=== PATIENT | female | born 1965 | race Caucasian/White ===

== ENCOUNTER 2017-06-22 18:42 | Emergency (ER) | payer MEDICAID ==
[~2017-06-22] VITALS: Ht 162.6 cm; Wt 66.0 kg
[~2017-06-22 18:42] MED LIST: CYCL-319 PO; IBUP-1542 PO
[2017-06-22 18:43] VITALS: Ht 162.6 cm; Wt 66.0 kg
--- NOTE | 2017-06-22 19:20 | ERD ---
ER Documentation Chief Complaint Chief Complaint left hand swelling, pain x 3 days, denies injury HPI This 51-year-old female presents to emergency department for acute onset of left hand pain, w/o injury denies history of arthritis ROS All systems reviewed and are negative except as per history of present illness. Medications Home Meds Active Scripts Famotidine* (Pepcid*) 20 Mg Tablet, 20 MG PO BID for 10 Days, TAB Prov:HOLLY,RICHARD 06/22/17 Naproxen* (Naprosyn*) 500 Mg Tablet, 500 MG PO BID Y for PAIN AND/OR INFLAMMATION, #20 TAB Prov:HOLLY,RICHARD 06/22/17 Ibuprofen* (Motrin*) 600 Mg Tab, 600 MG PO Q6H Y for PAIN AND OR ELEVATED TEMP, #30 TAB Prov:NIR DUKE NP 11/06/15 Cyclobenzaprine Hcl* (Cyclobenzaprine Hcl*) 10 Mg Tablet, 5 MG PO TID, #15 TAB Prov:NIR DUKE SODA JERKER 11/06/15 Allergies Allergies: Coded Allergies: No Known Allergy (Unverified , 11/06/15) PMhx/Soc History of Surgery: No Hx Neurological Disorder: No Hx Respiratory Disorders: Yes (ASTHMA) Hx Cardiac Disorders: No Hx Alcohol Use: Yes (OCCAS) Hx Substance Use: No Hx Tobacco Use: No Smoking Status: Never smoker Physical Exam Vitals Vital Signs Date Time Temp Pulse Resp B/P Pulse Ox O2 Delivery O2 Flow Rate FiO2 06/22/17 18:43 98.5 95 20 163/74 98 Vitals stable, triage notes reviewed Physical Exam Const: Nourished well-hydrated well-appearing 51-year-old female in no acute distress Head: Eyes: ENT: Neck: Resp: Cardio: Abd: Back: Ext: Hand -left Skin: [place] side of left hand is slightly erythremic, warm to touch, no obvious lesion, rash, or abrasion. Compartments: Soft Sensation: Intact shoulder/pinky/middle finger/thumb web space Bones: Nontender Snuffbox: Nontender Joints: No effusion Wrist: Negative Tinel's test, negative Phalen's sign Flex/Ext: Normal Uln/Radial deviation: Normal Pron/Supination Normal Finger: Flex/Ext: Normal Add/abd: Normal Thumb: Flex/Ext: Normal Opposition: Normal Thumbs up: Normal Neur: Awake and alert Psych: Normal Mood and Affect Results 24 hrs Current Medications Medications (Trade) Dose Ordered Sig/Dave Route PRN Reason Start Time Stop Time Status Last Admin Dose Admin Naproxen (Naprosyn) 500 mg ONCE ONCE PO 06/22/17 19:30 06/22/17 19:31 DC 06/22/17 19:37 Procedures/MDM PROCEDURE: XR Left Hand. CLINICAL INDICATION: Left hand pain TECHNIQUE: Three views of the left hand were obtained. COMPARISON: No prior studies are available for comparison. FINDINGS: There is no acute fracture. Alignment is normal. Joint spaces are preserved. Soft tissues are grossly unremarkable. IMPRESSION: 1. No radiographic evidence of acute osseous abnormality of the left hand. 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 Emergency room course includes history and physical exam unremarkable. Patient has no symptoms of carpal tunnel, negative Phalen sign, negative Tinel's, no evidence of a dermatitis, contact dermatitis, or infectious dermatitis. X-ray of left hand as read by radiologist; negative for fracture, dislocation, or arthritic changes. Patient treated with Naprosyn 500 mg reassessed after 30 minutes with improvement of hand pain. Plan to discharge patient home with Naprosyn 500 mg 1 tab p.o. twice daily 10 days, Pepcid 20 mg 1 tab p.o. twice daily 10 days, follow-up with primary care physician at the end of 10 days for treatment reevaluation. Patient is stable with no new complaints during ER course, clinically there is no current evidence to suggest cellulitis, osteomyelitis, fracture, dislocation, Aleida or any other emergent condition appearing to require further evaluation or hospitalization. I feel the patient is stable for discharge at this time. I have discussed results, examination findings, the treatment plan with the patient and family present prior to discharge. Indications for emergent reevaluation, side effects of medication were also discussed. All questions were answered. Patient verbalizes understanding and agrees with plan of care. Departure Diagnosis: Primary Impression: Pain of hand Laterality: left Qualified Code: M79.642 - Pain of left hand Condition: Good Patient Instructions: Tendonitis Additional Instructions: Thank you for for coming to [facility] for your care today. Please ask your nurse or provider if you have questions about your care today and do not leave until all your questions have been answered. Please use any medications given as directed and follow-up with your doctor (or the doctor you were referred to) in the next 2-3 days. If you do not have a primary care doctor you may follow up at the community hospital (listed below). You may also use motrin and tylenol as needed for fever and/or pain unless instructed otherwise by your provider or nurse. Indications for more urgent follow-up have been discussed, but you may return to the Emergency Department at ANY time for any worrisome or worsening symptoms. If you have abdominal pain, please know that no test or exam you received is perfect and you should follow up within 8 hours for continued pain. If you had any imaging studies today, such as an X-Ray or CT Scan, these studies will be reviewed later by a radiologist. You will be called if there are important findings that were not identified today, so make sure the contact information you provided at registration is correct. If you received any narcotic pain control medicine today, such as Vicodin, Morphine or Dilaudid, your coordination and judgment may be affected for a number of hours. Please do not drive or operate heavy machinery, and you may want someone to assist you at home. If you were given a prescription for narcotic medication, be aware that it is very addictive- use sparingly and only if necessary. RICHARD BARRERA Jun 22, 2017 19:19
[2017-06-22] MEDS ORDERED: NAPROXEN 500 MG TAB PO ONE (19:30)
--- NOTE | 2017-06-22 20:56 | RADRPT ---
PROCEDURE: XR Left Hand. CLINICAL INDICATION: Left hand pain TECHNIQUE: Three views of the left hand were obtained. COMPARISON: No prior studies are available for comparison. FINDINGS: There is no acute fracture. Alignment is normal. Joint spaces are preserved. Soft tissues are grossly unremarkable. IMPRESSION: 1. No radiographic evidence of acute osseous abnormality of the left hand. RPTAT: UU .Felipe Roberts MD, MD Date Time Electronically viewed and signed by .Felipe Roberts MD, on 06/22/2017 20:56 .K/
[2017-06-22] MEDS ORDERED: FAMO-96 PO (22:12)
[2017-06-22] MEDS ORDERED: NAPR-260 PO (22:12)
[2017-06-22 22:15] VITALS: BP 122/65; PULSE 74; RESP 18; TEMP 97.8
== END 2017-06-22 22:18 | disposition home or self-care (01) ==
LOC: FTE 18:42
DX: M79.642 Pain in left hand (principal); J45.909 Unspecified asthma, uncomplicated
CPT/HCPCS: 73130; Z7502; Z7610

== ENCOUNTER 2017-09-30 02:56 | Emergency (ER) | END 2017-09-30 09:30 | disposition home or self-care (01) ==